=== PATIENT | female | born 1945 | race Caucasian/White ===

== ENCOUNTER 2016-09-21 17:41 | Inpatient (IN) | payer MEDICARE ==
[~2016-09-21] VITALS: Ht 160 cm; Wt 55.3 kg
[~2016-09-21 17:41] MED LIST: LISI2.5T PO; METO25TA35 PO; OXYM-22 NAS
[2016-09-21] MEDS ORDERED: SODIUM CHLORIDE FLUSH 10ML SYR IVF ONE (18:30)
[2016-09-21] MEDS ORDERED: ONDANSETRON 2MG/ML, 2ML IVPush ONE (18:30)
[2016-09-21] MEDS ORDERED: HYDROmorphone 1 MG/ML, 1ML IVPush PRN (18:30)
[2016-09-21 18:43] LABS: HEMOGLOBIN 14.8 g/dL (11.7-16.4)
[2016-09-21 18:53] LABS: BLOOD UREA NITROGEN 12 mg/dL (7-18)
[2016-09-21] MEDS ORDERED: HYDROmorphone 1 MG/ML, 1ML ONE (19:24)
[2016-09-21] MEDS ORDERED: ONDANSETRON 2MG/ML, 2ML ONE ×2 (19:25→21:23)
[2016-09-21] MEDS ORDERED: FENTANYL PF 250 MCG/5ML ONE (20:31)
[2016-09-21] MEDS ORDERED: MIDAZOLAM 1 MG/ML, 2ML ONE (20:31)
[2016-09-21] MEDS ORDERED: ONDANSETRON 2MG/ML, 2ML IVP PRN (21:00)
[2016-09-21] MEDS ORDERED: hydrALAzine 20 MG/ML, 1ML IV PRN (21:00)
[2016-09-21] MEDS ORDERED: METOCLOPRAMIDE 5 MG/ML, 2ML IV PRN (21:00)
[2016-09-21] MEDS ORDERED: MEPERIDINE/PF 25MG/0.5ML IVPush PRN (21:00)
[2016-09-21] MEDS ORDERED: PROMETHAZINE 25 MG/ML, 1ML IV PRN (21:00)
[2016-09-21] MEDS ORDERED: HYDROmorphone 2 MG/ML, 1ML IV PRN (21:00)
[2016-09-21] MEDS ORDERED: HYDROmorphone 1 MG/ML, 1ML IV PRN (21:00)
[2016-09-21] MEDS ORDERED: FENTANYL PF 100 MCG/2ML IV PRN (21:00)
[2016-09-21] MEDS: NICOTINE 14MG/24 HR PATCH.TD24 TD SCH (21:00)
[2016-09-21] MEDS: METOPROLOL TARTRATE 25 MG TABLET PO SCH (21:00)
[2016-09-21] MEDS ORDERED: ONDANSETRON 2MG/ML, 2ML IVPush PRN (21:00)
[2016-09-21] MEDS ORDERED: BISACODYL 10 MG SUPP PR PRN (21:00)
[2016-09-21] MEDS ORDERED: OXYcodone 5 MG/5 ML ORAL.SOL UDC PO PRN (21:00)
[2016-09-21] MEDS ORDERED: LABETALOL 5MG/ML, 20ML IV PRN ×2 (21:00)
[2016-09-21] MEDS ORDERED: NEOSPORIN OINT, 15GM ONE (21:21)
[2016-09-21] MEDS ORDERED: CEFAZOLIN 1,000 MG ONE (21:23)
[2016-09-21] MEDS ORDERED: ROCURONIUM 10 MG/ML ONE (21:23)
[2016-09-21] MEDS ORDERED: PROPOFOL 10 MG/ML, 20ML ONE (21:23)
[2016-09-21] MEDS ORDERED: GLYCOPYRROLATE 0.2MG/1ML ONE (21:23)
[2016-09-21] MEDS ORDERED: DEXAMETHASONE 4 MG/ML, 5ML ONE (21:23)
[2016-09-21] MEDS ORDERED: NEOSTIGMINE 1 MG/ML, 10ML ONE (21:23)
[2016-09-21] MEDS ORDERED: OXYcodone 5 MG/5 ML ORAL.SOL UDC ONE (23:02)
[2016-09-21 23:55] VITALS: BP 161/71
[2016-09-22] MEDS: CEFAZOLIN PMX 1GM/50ML 50 ML IVPB SCH ×2 (02:16→09:33)
[2016-09-22] MEDS: POTASSIUM CHLORIDE 20 MEQ in SODIUM CHLORIDE 0.9% 1,000 ML IV SCH ×2 (02:16→11:23)
[2016-09-22 04:00] VITALS: BP 145/70
[2016-09-22 05:39] LABS: HEMOGLOBIN 14.8 g/dL (11.7-16.4)
[2016-09-22 05:50] LABS: ASPARTATE AMINO TRANSFERASE 20 U/L (15-37); BLOOD UREA NITROGEN 12 mg/dL (7-18)
[2016-09-22] MEDS: ENOXAPARIN 40 MG/0.4 ML SQ SCH (06:02)
[2016-09-22 09:20] VITALS: BP 136/73
[2016-09-22] MEDS: METOPROLOL TARTRATE 25 MG TABLET PO SCH ×2 (09:33→21:20)
[2016-09-22] MEDS: LISINOPRIL 5 MG TABLET PO SCH (09:33)
[2016-09-22] MEDS ORDERED: ERGOCALCIFEROL 50,000 UNIT CAPSULE PO SCH (11:00)
[2016-09-22] MEDS ORDERED: POTASSIUM CHLORIDE 20 MEQ TAB.ER.PRT PO ONE (11:00)
[2016-09-22] MEDS ORDERED: OXYcodone IR 5MG TABLET PO PRN (11:00)
[2016-09-22] MEDS: ACETAMINOPHEN 500 MG TABLET PO SCH ×3 (11:21→21:21)
[2016-09-22 14:55] VITALS: BP 154/69
[2016-09-22 19:45] VITALS: BP 122/59
[2016-09-22] MEDS: NICOTINE 14MG/24 HR PATCH.TD24 TD SCH (21:21)
[2016-09-23 02:45] VITALS: BP 129/69
[2016-09-23 05:48] LABS: BLOOD UREA NITROGEN 11 mg/dL (7-18)
[2016-09-23] MEDS: ENOXAPARIN 40 MG/0.4 ML SQ SCH (05:57)
[2016-09-23] MEDS: ACETAMINOPHEN 500 MG TABLET PO SCH ×4 (05:57→21:50)
[2016-09-23 06:09] LABS: HEMOGLOBIN 12.4 g/dL (11.7-16.4)
[2016-09-23 09:28] VITALS: BP 177/75
[2016-09-23] MEDS: METOPROLOL TARTRATE 25 MG TABLET PO SCH ×2 (09:29→21:50)
[2016-09-23] MEDS: LISINOPRIL 5 MG TABLET PO SCH (09:30)
[2016-09-23 13:29] VITALS: BP 169/76
[2016-09-23 19:40] VITALS: BP 160/77
[2016-09-23] MEDS: NICOTINE 14MG/24 HR PATCH.TD24 TD SCH (21:50)
[2016-09-24 03:18] VITALS: BP 160/72
[2016-09-24 04:47] LABS: HEMOGLOBIN 12.8 g/dL (11.7-16.4)
[2016-09-24] MEDS: ACETAMINOPHEN 500 MG TABLET PO SCH ×4 (06:35→20:27)
[2016-09-24] MEDS: ENOXAPARIN 40 MG/0.4 ML SQ SCH (06:35)
[2016-09-24 07:05] VITALS: BP 160/77
[2016-09-24] MEDS: METOPROLOL TARTRATE 25 MG TABLET PO SCH ×2 (07:25→20:28)
[2016-09-24] MEDS: LISINOPRIL 5 MG TABLET PO SCH ×2 (07:26→08:03)
[2016-09-24 12:17] VITALS: BP 145/79
[2016-09-24] MEDS ORDERED: TEMAZEPAM 30 MG CAPSULE PO PRN (13:00)
[2016-09-24 20:02] VITALS: BP 177/74
[2016-09-24] MEDS: NICOTINE 14MG/24 HR PATCH.TD24 TD SCH (20:27)
[2016-09-24] MEDS: DOCUSATE 100 MG CAPSULE PO SCH (20:27)
[2016-09-25 02:35] VITALS: BP 133/77
[2016-09-25] MEDS: ACETAMINOPHEN 500 MG TABLET PO SCH ×2 (05:32→11:33)
[2016-09-25] MEDS: ENOXAPARIN 40 MG/0.4 ML SQ SCH (05:32)
[2016-09-25 07:58] VITALS: BP 153/72
[2016-09-25] MEDS: METOPROLOL TARTRATE 25 MG TABLET PO SCH (08:50)
[2016-09-25] MEDS: LISINOPRIL 5 MG TABLET PO SCH (08:51)
[2016-09-25] MEDS: DOCUSATE 100 MG CAPSULE PO SCH (08:51)
[2016-09-25] MEDS ORDERED: ERGO500017 PO (09:58)
[2016-09-25] MEDS ORDERED: TRAM50TA2 PO (09:58)
[2016-09-25 13:04] VITALS: BP 115/53
== END 2016-09-25 15:20 | disposition home health service (06) | DRG 481 ==
LOC: SUATTDRO 20:23 → ED 20:25 → EDIP 20:41 → 4NOR 23:45 → DCLOUNGE 09-25 15:12
PROC: 0T9B70Z Drainage of Bladder with Drainage Device, Via Natural or Artificial Opening (ICD-10-PCS; 2016-09-21)
PROC: 0QS604Z Reposition Right Upper Femur with Internal Fixation Device, Open Approach (ICD-10-PCS; principal; 2016-09-21 21:30)
DX: S72.144A Nondisplaced intertrochanteric fracture of right femur, initial encounter for closed fracture (principal); E87.1 Hypo-osmolality and hyponatremia; I11.9 Hypertensive heart disease without heart failure; E78.5 Hyperlipidemia, unspecified; E87.6 Hypokalemia; D72.829 Elevated white blood cell count, unspecified; F17.210 Nicotine dependence, cigarettes, uncomplicated; R73.9 Hyperglycemia, unspecified; E55.9 Vitamin D deficiency, unspecified; E16.2 Hypoglycemia, unspecified; E78.00 Pure hypercholesterolemia, unspecified; W18.30XA Fall on same level, unspecified, initial encounter; Y92.009 Unspecified place in unspecified non-institutional (private) residence as the place of occurrence of the external cause; Z90.710 Acquired absence of both cervix and uterus
CPT/HCPCS: 36415; 71010; 76000; 80048; 80053; 81003; 82040; 82306; 83735; 84100; 84439; 84443; 85025; 85610; 85730; 93005; 96374; 96375; C1713; J0690; J1100; J1170; J1650; J2250; J2405; J2704; J2710; J3010; J3480; J3490; J7030

== ENCOUNTER → 2018-12-19 | Outpatient (CLI) | payer MEDICARE ==
[~2018-12-19] MED LIST changes: +ERGO500017 PO; +TRAM50TA2 PO
== END | disposition home or self-care (01) ==
LOC: CFH 14:10
PROVIDERS: ATTEND Licensed Practical Nurse
DX: Z12.2 Encounter for screening for malignant neoplasm of respiratory organs (principal); J84.89 Other specified interstitial pulmonary diseases; I25.10 Atherosclerotic heart disease of native coronary artery without angina pectoris; M85.89 Other specified disorders of bone density and structure, multiple sites; N95.8 Other specified menopausal and perimenopausal disorders; F17.211 Nicotine dependence, cigarettes, in remission
CPT/HCPCS: 77080; G0297

== ENCOUNTER 2019-06-01 11:45 | Observation (INO) | payer MEDICARE ==
[~2019-06-01] VITALS: Ht 160 cm; Wt 76.2 kg
--- NOTE | 2019-06-01 11:50 | NUR ---
THIS IS A 74 Y/O FEMALE THAT WOKE UP TODAY NOT FEELING WELL. PT REPORTS THAT SHE WOKE UP MUCH LATER THAN NORMAL AND NOTICED HER VOICE WAS FUNNY. PT REPORTS HX OF HTN AND HYPERLIPIDEMIA. PT REPORTS THAT SHE WAS HAVING DIFFICULTY COORDINATING THINGS AT THIS TIME. PT CONNECTED TO ALL MONITORS AND CALL LIGHT IN REACH. AWAITING FURTHER ORDERS.
[2019-06-01] MEDS ORDERED: LABETALOL 5MG/ML, 20ML ONE (11:56)
[2019-06-01] MEDS ORDERED: SODIUM CHLORIDE 0.9% 1,000ML IVBOLUS ONE (12:00)
[2019-06-01] MEDS ORDERED: SODIUM CHLORIDE FLUSH 10ML SYR IVF ONE (12:00)
[2019-06-01] MEDS ORDERED: LABETALOL 5MG/ML, 20ML IVPush ONE (12:00)
--- NOTE | 2019-06-01 12:10 | NUR ---
PT MEDICATED PER EMAR.
[2019-06-01 12:19] LABS: BASOPHILS # (AUTO) 0.05 x10^3/uL (0-0.1); BASOPHILS % (AUTO) 0 % (0-1); EOSINOPHILS # (AUTO) 0.13 x10^3/uL (0-0.4); EOSINOPHILS % (AUTO) 1 % (1-7); LYMPHOCYTES # (AUTO) 2.25 x10^3/uL (1-3.4); LYMPHOCYTES % (AUTO) 20 % (22-44); MD NO; MEAN CORPUSCULAR HEMOGLOBIN 30.7 pg (27.0-34.8); MEAN CORPUSCULAR HGB CONC 32.9 g/dL (32.4-35.8); MEAN CORPUSCULAR VOLUME 93.1 fL (80-100); MONOCYTES # (AUTO) 0.72 x10^3/uL (0.2-0.8); MONOCYTES % (AUTO) 6 % (2-9); NEUTROPHILS # (AUTO) 8.13 x10^3/uL (1.8-6.8); NEUTROPHILS % (AUTO) 72 % (42-75); PLATELET COUNT 299 x10^3/uL (130-400); RED BLOOD COUNT 5.02 x10^6/uL (3.82-5.3); RED CELL DISTRIBUTION WIDTH 12.9 % (9.6-15.2)
[2019-06-01 12:26] LABS: INTERNATIONAL NORMALIZED RATIO 0.97 (0.93-1.1); PROTHROMBIN TIME 10.2 Seconds (9.6-11.5)
[2019-06-01 12:28] LABS: ANION GAP 8 mmol/L (5-15); CALCIUM 9.5 mg/dL (8.5-10.1); CHLORIDE 106 mmol/L (98-107); CREATININE 1.02 mg/dL (0.55-1.02)
[2019-06-01 12:29] LABS: ALANINE AMINOTRANSFERASE 25 U/L (12-78); ALBUMIN 3.6 g/dL (3.4-5.0)
[2019-06-01] MEDS ORDERED: PLEASE ENTER HEIGHT AND WEIGHT MC SCH (12:30)
[2019-06-01 12:31] LABS: ALKALINE PHOSPHATASE 117 U/L (45-117); BILIRUBIN,TOTAL 0.6 mg/dL (0.2-1.0); TOTAL PROTEIN 6.7 g/dL (6.4-8.2)
--- NOTE | 2019-06-01 12:40 | NUR ---
PT AMBULATED TO RESTROOM, STAND BY ASSIST.
--- NOTE | 2019-06-01 13:07 | NUR ---
PT UNABLE TO PROVIDE UA. PT REPORTS SHE HAD URGE BUT NO URINE PRODUCED.
--- NOTE | 2019-06-01 13:08 | NUR ---
PT BACK FROM CT.
[2019-06-01] MEDS ORDERED: OMNIPAQUE 350 MG/ML, 100ML BOTTLE ONE (13:16)
[2019-06-01] MEDS ORDERED: POTASSIUM CHLORIDE 20 MEQ TAB.ER.PRT PO ONE (13:30)
[2019-06-01] MEDS ORDERED: POTASSIUM CHLORIDE 20 MEQ TAB.ER.PRT ONE (13:47)
[2019-06-01] MEDS ORDERED: ASPIRIN 325 MG TABLET ONE (13:47)
[2019-06-01] MEDS ORDERED: ASPIRIN 81 MG TABLET CHEW PO ONE (14:00)
--- NOTE | 2019-06-01 14:09 | NUR ---
PT MEDICATED PER EMAR AND PROVIDED WITH MEAL TRAY.
--- NOTE | 2019-06-01 14:23 | NUR ---
dr nuno spoke with dr mazariegos
--- NOTE | 2019-06-01 14:29 | NUR ---
PT GIVEN MEAL TRAY. PT A/OX4 AND VSS.
--- NOTE | 2019-06-01 14:57 | NUR ---
REPORT TO ANIKA LOPEZ, JULIO RN GURU INFORMED OF PTS HTN AND MEDICATIONS GIVEN ON ARRIVAL.
[2019-06-01 15:30] VITALS: BP 176/76
[2019-06-01] MEDS ORDERED: DOCUSATE 100 MG CAPSULE PO PRN (15:30)
[2019-06-01] MEDS ORDERED: NICOTINE 14MG/24 HR PATCH.TD24 TD SCH (15:30)
[2019-06-01] MEDS ORDERED: ACETAMINOPHEN 325 MG TABLET PO PRN (15:30)
[2019-06-01] MEDS ORDERED: ONDANSETRON 2MG/ML, 2ML IVPush PRN (15:30)
[2019-06-01] MEDS ORDERED: HEPARIN 5,000 UNITS/ML, 1ML SQ SCH (15:30)
[2019-06-01] MEDS ORDERED: ONDANSETRON ODT 4 MG PO PRN (15:30)
[2019-06-01] MEDS ORDERED: CLOPIDOGREL 300 MG TABLET PO ONE (16:00)
[2019-06-01 16:41] VITALS: BP 176/76
[2019-06-01 17:05] VITALS: BP 176/86
[2019-06-01 18:59] VITALS: BP 156/82
[2019-06-02 01:02] VITALS: BP 162/78
[2019-06-02 05:50] LABS: ANION GAP 5 mmol/L (5-15); BASOPHILS # (AUTO) 0.05 x10^3/uL (0-0.1); BASOPHILS % (AUTO) 1 % (0-1); CALCIUM 9.2 mg/dL (8.5-10.1); CHLORIDE 108 mmol/L (98-107); EOSINOPHILS % (AUTO) 2 % (1-7); LYMPHOCYTES # (AUTO) 2.92 x10^3/uL (1-3.4); LYMPHOCYTES % (AUTO) 34 % (22-44); MD NO; MEAN CORPUSCULAR HEMOGLOBIN 31.1 pg (27.0-34.8); MEAN CORPUSCULAR HGB CONC 33.1 g/dL (32.4-35.8); MEAN CORPUSCULAR VOLUME 93.8 fL (80-100); MEAN PLATELET VOLUME 9.3 fL (7.4-10.4); MONOCYTES # (AUTO) 0.75 x10^3/uL (0.2-0.8); MONOCYTES % (AUTO) 9 % (2-9); NEUTROPHILS # (AUTO) 4.78 x10^3/uL (1.8-6.8); NEUTROPHILS % (AUTO) 55 % (42-75); PLATELET COUNT 275 x10^3/uL (130-400); RED BLOOD COUNT 4.71 x10^6/uL (3.82-5.3); RED CELL DISTRIBUTION WIDTH 13.2 % (9.6-15.2)
[2019-06-02] MEDS ORDERED: ASPIRIN 325 MG TABLET PO SCH (06:00)
[2019-06-02 06:03] LABS: CREATININE 0.93 mg/dL (0.55-1.02)
[2019-06-02 06:54] VITALS: BP 157/72
[2019-06-02] MEDS ORDERED: CLOPIDOGREL 75 MG TABLET PO SCH (09:00)
[2019-06-02 11:21] VITALS: BP 168/83
[2019-06-02 14:35] VITALS: BP 169/81
[2019-06-02] MEDS ORDERED: CLOP75TA PO (15:36)
[2019-06-02] MEDS ORDERED: LISI-167 PO (15:36)
[2019-06-02] MEDS ORDERED: ASPI325T17 PO (15:36)
== END 2019-06-02 16:35 | disposition home or self-care (01) ==
LOC: ED 12:01 → EDIP 13:45 → INTOOBSV 13:45 → 4WST 15:48 → DCLOUNGE 06-02 16:20
PROVIDERS: ADMIT Internal Medicine; ATTEND Internal Medicine
DX: R47.01 Aphasia (principal); I65.23 Occlusion and stenosis of bilateral carotid arteries; E78.5 Hyperlipidemia, unspecified; F17.200 Nicotine dependence, unspecified, uncomplicated; E78.00 Pure hypercholesterolemia, unspecified; I99.8 Other disorder of circulatory system; I11.9 Hypertensive heart disease without heart failure; I25.10 Atherosclerotic heart disease of native coronary artery without angina pectoris; Z90.710 Acquired absence of both cervix and uterus; Z88.0 Allergy status to penicillin; Z88.2 Allergy status to sulfonamides; Z79.82 Long term (current) use of aspirin; Z79.02 Long term (current) use of antithrombotics/antiplatelets
CPT/HCPCS: 36415; 70450; 70496; 70498; 70551; 80048; 80053; 83735; 84443; 85025; 85610; 93005; 93306; 96374; 97161; 97165; 99284; G0378; J7030; Q9967

== ENCOUNTER 2019-08-01 17:33 | Inpatient (IN) | payer MEDICARE ==
[~2019-08-01] VITALS: Ht 170.2 cm; Wt 98.1 kg
[~2019-08-01 17:33] MED LIST changes: +ASPI325T17 PO; +CLOP75TA PO; +LISI-167 PO; +VIT1CAPS42 PO
[2019-08-01] MEDS ORDERED: FENTANYL PF 100 MCG/2ML ONE (17:40)
[2019-08-01] MEDS ORDERED: MIDAZOLAM 1 MG/ML, 5ML ONE (17:40)
[2019-08-01] MEDS ORDERED: NITROGLYCERIN 5 MG/ML, 10ML ONE (17:41)
[2019-08-01] MEDS ORDERED: LIDOCAINE 2%, 20ML ONE (17:41)
[2019-08-01] MEDS ORDERED: NITROGLYCERIN OINT 2%, 1GM TP ONE ×2 (17:41→21:00)
[2019-08-01] MEDS ORDERED: BIVALIRUDIN 250 MG ONE (17:41)
[2019-08-01] MEDS: METOPROLOL 1 MG/ML, 5ML IVPush PRN ×2 (17:45→17:55)
--- NOTE | 2019-08-01 17:45 | NUR ---
Late entry: code cardiac called for possible STEMI. EKG done immediately at time of arrival, Dr. Simmons @ BS when pt arrived, reviewed EKG & code cardiac canceled. Pt reports she has no CP at this time but experiences an occasional "twinge" in her chest. States she had an onset of slurred speech at 1650 witnessed by her catshovel driver. 911 called, and STEMI alert called in report based on EKG done in field. At this time pt is A&Ox4, speech clear, pain free. Hypertensive and 1" ntg paste & 1st dose of metoprolol 5mg IV administered. Cardiac, NIBP & SPO2 monitors IP.
--- NOTE | 2019-08-01 18:05 | NUR ---
173/74, 58 after 2nd dose of metoprolol. Remains pain free, no neuro deficits.
[2019-08-01 18:07] LABS: BASOPHILS # (AUTO) 0.05 x10^3/uL (0-0.1); BASOPHILS % (AUTO) 1 % (0-1); EOSINOPHILS # (AUTO) 0.16 x10^3/uL (0-0.4); EOSINOPHILS % (AUTO) 2 % (1-7); LYMPHOCYTES # (AUTO) 2.64 x10^3/uL (1-3.4); LYMPHOCYTES % (AUTO) 30 % (22-44); MD NO; MEAN CORPUSCULAR HEMOGLOBIN 31.1 pg (27.0-34.8); MEAN CORPUSCULAR HGB CONC 33.6 g/dL (32.4-35.8); MEAN CORPUSCULAR VOLUME 92.6 fL (80-100); MONOCYTES # (AUTO) 0.76 x10^3/uL (0.2-0.8); MONOCYTES % (AUTO) 9 % (2-9); NEUTROPHILS # (AUTO) 5.19 x10^3/uL (1.8-6.8); NEUTROPHILS % (AUTO) 59 % (42-75); PLATELET COUNT 304 x10^3/uL (130-400); RED BLOOD COUNT 5.04 x10^6/uL (3.82-5.3); RED CELL DISTRIBUTION WIDTH 13.4 % (9.6-15.2)
--- NOTE | 2019-08-01 18:12 | NUR ---
To radiology for CT head.
[2019-08-01 18:14] LABS: INTERNATIONAL NORMALIZED RATIO 0.89 (0.93-1.1); PROTHROMBIN TIME 9.4 Seconds (9.6-11.5)
[2019-08-01] MEDS ORDERED: METOPROLOL 1 MG/ML, 5ML ONE (18:17)
[2019-08-01 18:20] LABS: ALANINE AMINOTRANSFERASE 23 U/L (12-78); ALBUMIN 4.2 g/dL (3.4-5.0); ANION GAP 6 mmol/L (5-15); CALCIUM 9.9 mg/dL (8.5-10.1); CHLORIDE 103 mmol/L (98-107)
[2019-08-01 18:25] LABS: ALKALINE PHOSPHATASE 121 U/L (45-117); BILIRUBIN,TOTAL 0.5 mg/dL (0.2-1.0); TOTAL PROTEIN 7.6 g/dL (6.4-8.2); TROPONIN I < 0.015 ng/mL (0.000-0.045)
--- NOTE | 2019-08-01 18:45 | NUR ---
tb card/tele admit. No change in neuro assessment, no CP.
--- NOTE | 2019-08-01 18:51 | NUR ---
REPORT RECEIVED FROM YESI LOPEZ. ASSUMING CARE AT THIS TIME.
--- NOTE | 2019-08-01 18:57 | NUR ---
Break RN: Patient resting in [facility] with no complaints. Awaiting CT results.
--- NOTE | 2019-08-01 19:57 | NUR ---
PT RESTING COMFORTABLY ON GURNEY. NADN. WAITING ADMIT BED UPSTAIRS. CONNECTED TO MONITORING.
--- NOTE | 2019-08-01 20:37 | NUR ---
REPORT GIVEN TO ADIN LOPEZ
[2019-08-01 20:55] VITALS: BP 196/80
[2019-08-01] MEDS ORDERED: ACETAMINOPHEN 650 MG/20.3 ML UDC PO PRN (23:30)
[2019-08-01] MEDS ORDERED: ONDANSETRON 2MG/ML, 2ML IVPush PRN (23:30)
[2019-08-01] MEDS ORDERED: LABETALOL 5MG/ML, 20ML IV PRN (23:30)
[2019-08-01 23:50] VITALS: BP 125/67
[2019-08-01] MEDS: NICOTINE 7 MG/24 HR PATCH.TD24 TD SCH (23:52)
[2019-08-01] MEDS: AMLODIPINE 2.5 MG TABLET PO SCH (23:53)
[2019-08-01] MEDS: HEPARIN 5,000 UNITS/ML, 1ML SQ SCH (23:53)
[2019-08-01 23:57] LABS: TROPONIN I < 0.015 ng/mL (0.000-0.045)
[2019-08-02] VITALS (10 sets, daily range): BP systolic 97–190; BP diastolic 62–94
[2019-08-02] MEDS ORDERED: SODIUM CHLORIDE 0.9%, 500ML IVBOLUS ONE (03:00)
[2019-08-02 05:11] LABS: ANION GAP 5 mmol/L (5-15); CHLORIDE 107 mmol/L (98-107); CHOLESTEROL, TOTAL 163 mg/dL (140-239); CREATININE 1.11 mg/dL (0.55-1.02); TRIGLYCERIDES 213 mg/dL (50-200); VLDL CHOLESTEROL 43 mg/dL (0-25)
[2019-08-02 05:14] LABS: CHOL/HDL RATIO 3.5; HDL CHOL % 29 % (28-40); HDL CHOLESTEROL (DIRECT) 47 mg/dL (40-60); LDL CHOLESTEROL,CALCULATED 73 mg/dL (54-169); LDL/HDL RATIO 1.6 (0.5-3.0); TROPONIN I < 0.015 ng/mL (0.000-0.045)
[2019-08-02] MEDS ORDERED: ASPIRIN 325 MG TABLET PO SCH (06:00)
[2019-08-02] MEDS ORDERED: REGADENOSON 0.4 MG/5 ML SYRINGE ONE (08:37)
[2019-08-02] MEDS ORDERED: ACETAMINOPHEN 650 MG/20.3 ML UDC PO PRN (09:00)
[2019-08-02] MEDS ORDERED: POTASSIUM CHLORIDE 20 MEQ TAB.ER.PRT PO ONE (09:00)
[2019-08-02] MEDS: HEPARIN 5,000 UNITS/ML, 1ML SQ SCH ×2 (09:08→16:46)
[2019-08-02] MEDS: CLOPIDOGREL 75 MG TABLET PO SCH (12:38)
[2019-08-02] MEDS: LISINOPRIL 10 MG TABLET PO SCH (12:38)
--- NOTE | 2019-08-02 15:23 | NUR ---
REC: Reg/thin liquids; no orange sheet indicated Addendum: 08/02/19 at 1523 by Joselyn NIXON Amended: Links added.
[2019-08-02] MEDS ORDERED: ATORVASTATIN 40 MG TABLET PO SCH (21:00)
[2019-08-02] MEDS ORDERED: ATORVASTATIN 20 MG TABLET PO SCH (21:00)
[2019-08-02] MEDS: AMLODIPINE 2.5 MG TABLET PO SCH (21:16)
[2019-08-02] MEDS: NICOTINE 7 MG/24 HR PATCH.TD24 TD SCH (23:03)
[2019-08-03] MEDS: HEPARIN 5,000 UNITS/ML, 1ML SQ SCH ×2 (01:25→10:09)
[2019-08-03 01:31] VITALS: BP 135/80
[2019-08-03 02:23] VITALS: BP 122/80
[2019-08-03] MEDS ORDERED: ASPIRIN 81 MG TABLET CHEW PO SCH (06:00)
[2019-08-03 06:12] VITALS: BP 164/73
[2019-08-03 06:38] LABS: ANION GAP 6 mmol/L (5-15); CALCIUM 9.3 mg/dL (8.5-10.1); CHLORIDE 109 mmol/L (98-107); CREATININE 1.08 mg/dL (0.55-1.02)
[2019-08-03 06:43] VITALS: BP 168/88
[2019-08-03] MEDS ORDERED: NICO-485 TD (09:44)
[2019-08-03] MEDS ORDERED: ATOR40TA78 PO (09:44)
[2019-08-03] MEDS ORDERED: AMLO2.5T5 PO (09:44)
[2019-08-03] MEDS: CLOPIDOGREL 75 MG TABLET PO SCH (10:08)
[2019-08-03] MEDS: LISINOPRIL 10 MG TABLET PO SCH (10:08)
[2019-08-03 10:16] VITALS: BP 177/83
== END 2019-08-03 12:39 | disposition home or self-care (01) | DRG 65 ==
LOC: ED 18:29 → EDIP 19:59 → 4EST 20:50 → DCLOUNGE 08-03 12:13
PROVIDERS: ADMIT Family Medicine; ATTEND Family Medicine
DX: I63.9 Cerebral infarction, unspecified (principal); I16.1 Hypertensive emergency; R47.01 Aphasia; E78.00 Pure hypercholesterolemia, unspecified; E78.1 Pure hyperglyceridemia; E78.5 Hyperlipidemia, unspecified; E87.6 Hypokalemia; F17.210 Nicotine dependence, cigarettes, uncomplicated; G47.00 Insomnia, unspecified; H91.10 Presbycusis, unspecified ear; I10 Essential (primary) hypertension; I25.10 Atherosclerotic heart disease of native coronary artery without angina pectoris; Z90.711 Acquired absence of uterus with remaining cervical stump; Z88.0 Allergy status to penicillin; Z88.2 Allergy status to sulfonamides; Z88.8 Allergy status to other drugs, medicaments and biological substances; Z71.6 Tobacco abuse counseling
CPT/HCPCS: 36415; 70450; 70551; 71045; 78452; 80047; 80048; 80053; 80061; 83605; 84484; 85025; 85610; 93005; 93017; 96374; G0378; J0583; J1644; J2250; J2785; J3010; A9502; C9898; J7040

== ENCOUNTER 2019-12-15 18:04 | Observation (INO) | payer MEDICARE, MEDICAID ==
[~2019-12-15] VITALS: Ht 160 cm; Wt 77.9 kg
[~2019-12-15 18:04] MED LIST changes: +AMLO2.5T5 PO; +ATOR40TA78 PO; +NICO-485 TD
--- NOTE | 2019-12-15 18:34 | NUR ---
PT IN HOSPITAL GOWN. PT ON VITALS AND CARDIAC MONITORS. CALL LIGHT WITHIN REACH. PT RESTING IN BED AWAITING ERP EVAL. WILL CONTINUE TO MONITOR.
[2019-12-15] MEDS ORDERED: SODIUM CHLORIDE FLUSH 10ML SYR IVF ONE (19:00)
--- NOTE | 2019-12-15 19:09 | NUR ---
ASSUMED CARE OF PT AT THIS TIME. PT RESTING WITH NO CONCERNS. EKG COMPLETE.
[2019-12-15 19:31] LABS: INTERNATIONAL NORMALIZED RATIO 0.93 (0.93-1.1); PROTHROMBIN TIME 9.8 Seconds (9.6-11.5)
[2019-12-15 19:32] LABS: ALBUMIN 4.1 g/dL (3.4-5.0); ANION GAP 8 mmol/L (5-15); CALCIUM 9.5 mg/dL (8.5-10.1); CHLORIDE 98 mmol/L (98-107); CREATININE 1.34 mg/dL (0.55-1.02)
[2019-12-15 19:34] LABS: BASOPHILS # (AUTO) 0.04 x10^3/uL (0-0.1); BASOPHILS % (AUTO) 0 % (0-1); EOSINOPHILS # (AUTO) 0.01 x10^3/uL (0-0.4); EOSINOPHILS % (AUTO) 0 % (1-7); LYMPHOCYTES # (AUTO) 1.65 x10^3/uL (1-3.4); LYMPHOCYTES % (AUTO) 14 % (22-44); MD NO; MEAN CORPUSCULAR HEMOGLOBIN 30.9 pg (27.0-34.8); MEAN CORPUSCULAR HGB CONC 34.2 g/dL (32.4-35.8); MEAN CORPUSCULAR VOLUME 90.4 fL (80-100); MEAN PLATELET VOLUME 8.9 fL (7.4-10.4); MONOCYTES # (AUTO) 0.85 x10^3/uL (0.2-0.8); MONOCYTES % (AUTO) 7 % (2-9); NEUTROPHILS # (AUTO) 9.27 x10^3/uL (1.8-6.8); NEUTROPHILS % (AUTO) 78 % (42-75); PLATELET COUNT 356 x10^3/uL (130-400); RED BLOOD COUNT 4.84 x10^6/uL (3.82-5.3); RED CELL DISTRIBUTION WIDTH 13.3 % (9.6-15.2)
--- NOTE | 2019-12-15 19:36 | NUR ---
PT TO AND FROM CT.
--- NOTE | 2019-12-15 20:43 | NUR ---
PT AGREEABLE TO PLAN OF CARE OF ADMISSION. AWAITING BED PLACEMENT. PT DOES NOT HAVE MED LIST WITH HER AND IS UNSURE WHAT MEDICATION AND DOSAGES SHE TAKES.
[2019-12-15] MEDS ORDERED: SODIUM CHLORIDE FLUSH 10ML SYR IVF PRN (21:00)
[2019-12-15] MEDS ORDERED: ASPIRIN 81 MG TABLET CHEW PO ONE (21:00)
--- NOTE | 2019-12-15 21:09 | NUR ---
REPORT GIVEN TO MINNA LOPEZ.
[2019-12-15] MEDS ORDERED: ASPIRIN 81 MG TABLET CHEW ONE (21:14)
--- NOTE | 2019-12-15 21:32 | NUR ---
NEW IV STARTED IN CT PER [employer] F[employer]ICATOR. PT GIVEN ASPIRIN PRIOR TO TRANSPORT TO FLOOR.
[2019-12-15] MEDS ORDERED: OMNIPAQUE 350 MG/ML, 100ML BOTTLE ONE (21:42)
[2019-12-15 22:25] VITALS: BP 174/84
[2019-12-15] MEDS: ATORVASTATIN 80 MG TABLET PO SCH (23:53)
[2019-12-16] MEDS ORDERED: hydrALAzine 20 MG/ML, 1ML IVPush PRN
[2019-12-16] MEDS ORDERED: POTASSIUM CHLORIDE 20 MEQ TAB.ER.PRT PO ONE
[2019-12-16 00:11] VITALS: BP 152/68
[2019-12-16 00:28] LABS: MICROSCOPIC NOT IND
[2019-12-16 01:32] LABS: TROPONIN I 0.548 ng/mL (0.000-0.045)
[2019-12-16 06:08] LABS: BASOPHILS # (AUTO) 0.08 x10^3/uL (0-0.1); BASOPHILS % (AUTO) 1 % (0-1); EOSINOPHILS # (AUTO) 0.18 x10^3/uL (0-0.4); EOSINOPHILS % (AUTO) 2 % (1-7); LYMPHOCYTES # (AUTO) 2.53 x10^3/uL (1-3.4); LYMPHOCYTES % (AUTO) 27 % (22-44); MD NO; MEAN CORPUSCULAR HEMOGLOBIN 30.7 pg (27.0-34.8); MEAN CORPUSCULAR HGB CONC 33.5 g/dL (32.4-35.8); MEAN CORPUSCULAR VOLUME 91.5 fL (80-100); MEAN PLATELET VOLUME 8.9 fL (7.4-10.4); MONOCYTES % (AUTO) 10 % (2-9); NEUTROPHILS # (AUTO) 5.66 x10^3/uL (1.8-6.8); NEUTROPHILS % (AUTO) 61 % (42-75); PLATELET COUNT 343 x10^3/uL (130-400); RED BLOOD COUNT 4.53 x10^6/uL (3.82-5.3); RED CELL DISTRIBUTION WIDTH 13.1 % (9.6-15.2)
[2019-12-16 06:20] LABS: ANION GAP 5 mmol/L (5-15); CALCIUM 9.1 mg/dL (8.5-10.1); CHLORIDE 98 mmol/L (98-107); CHOLESTEROL, TOTAL 154 mg/dL (140-239); CREATININE 1.32 mg/dL (0.55-1.02); TRIGLYCERIDES 112 mg/dL (50-200); VLDL CHOLESTEROL 22 mg/dL (0-25)
[2019-12-16 06:24] LABS: CHOL/HDL RATIO 3.3; HDL CHOL % 30 % (28-40); HDL CHOLESTEROL (DIRECT) 46 mg/dL (40-60); LDL CHOLESTEROL,CALCULATED 86 mg/dL (54-169); LDL/HDL RATIO 1.9 (0.5-3.0); TROPONIN I 0.694 ng/mL (0.000-0.045)
[2019-12-16] MEDS: ASPIRIN 325 MG TABLET PO SCH (08:11)
[2019-12-16] MEDS: LISINOPRIL 10 MG TABLET PO SCH (08:11)
[2019-12-16] MEDS: CLOPIDOGREL 75 MG TABLET PO SCH (08:11)
[2019-12-16 08:23] VITALS: BP 146/78
[2019-12-16] MEDS: NICOTINE 7 MG/24 HR PATCH.TD24 TD SCH (10:56)
[2019-12-16] MEDS ORDERED: SODIUM CHLORIDE 0.9% 1,000ML IVBOLUS ONE (12:00)
[2019-12-16 15:41] VITALS: BP 147/74
[2019-12-16 20:13] VITALS: BP 145/75
[2019-12-16] MEDS: ATORVASTATIN 80 MG TABLET PO SCH (20:26)
[2019-12-16] MEDS ORDERED: AMLODIPINE 2.5 MG TABLET PO SCH (21:00)
[2019-12-17 00:33] VITALS: BP 136/76
[2019-12-17 06:03] LABS: ALBUMIN 3.3 g/dL (3.4-5.0); ANION GAP 4 mmol/L (5-15); CHLORIDE 105 mmol/L (98-107); CREATININE 1.15 mg/dL (0.55-1.02)
[2019-12-17 06:08] LABS: BASOPHILS # (AUTO) 0.05 x10^3/uL (0-0.1); BASOPHILS % (AUTO) 1 % (0-1); EOSINOPHILS % (AUTO) 1 % (1-7); LYMPHOCYTES # (AUTO) 1.93 x10^3/uL (1-3.4); LYMPHOCYTES % (AUTO) 27 % (22-44); MD NO; MEAN CORPUSCULAR HEMOGLOBIN 30.8 pg (27.0-34.8); MEAN CORPUSCULAR HGB CONC 33.6 g/dL (32.4-35.8); MEAN CORPUSCULAR VOLUME 91.6 fL (80-100); MEAN PLATELET VOLUME 8.8 fL (7.4-10.4); MONOCYTES # (AUTO) 0.63 x10^3/uL (0.2-0.8); MONOCYTES % (AUTO) 9 % (2-9); NEUTROPHILS # (AUTO) 4.53 x10^3/uL (1.8-6.8); NEUTROPHILS % (AUTO) 63 % (42-75); PLATELET COUNT 342 x10^3/uL (130-400); RED BLOOD COUNT 4.49 x10^6/uL (3.82-5.3); RED CELL DISTRIBUTION WIDTH 13.3 % (9.6-15.2)
[2019-12-17 06:44] VITALS: BP 127/69
[2019-12-17] MEDS: CLOPIDOGREL 75 MG TABLET PO SCH (08:23)
[2019-12-17] MEDS: ASPIRIN 325 MG TABLET PO SCH (08:23)
[2019-12-17] MEDS: LISINOPRIL 10 MG TABLET PO SCH (08:24)
[2019-12-17] MEDS: NICOTINE 7 MG/24 HR PATCH.TD24 TD SCH (11:28)
[2019-12-17 12:57] VITALS: BP 169/81
[2019-12-17] MEDS ORDERED: ASPI325T17 PO (13:56)
== END 2019-12-17 15:04 | disposition home or self-care (01) ==
LOC: ED 21:12 → EDIP 21:55 → INTOOBSV 21:55 → 4WST 21:56 → DCLOUNGE 12-17 14:40
PROVIDERS: ADMIT Family Medicine; ATTEND Family Medicine
DX: I21.4 Non-ST elevation (NSTEMI) myocardial infarction (principal); I63.9 Cerebral infarction, unspecified; R53.1 Weakness; I10 Essential (primary) hypertension; E78.5 Hyperlipidemia, unspecified; H35.30 Unspecified macular degeneration; I65.29 Occlusion and stenosis of unspecified carotid artery; R42 Dizziness and giddiness; E78.00 Pure hypercholesterolemia, unspecified; G51.0 Bell's palsy; F17.200 Nicotine dependence, unspecified, uncomplicated; Z86.73 Personal history of transient ischemic attack (TIA), and cerebral infarction without residual deficits; Z88.0 Allergy status to penicillin; Z79.899 Other long term (current) drug therapy; Z79.82 Long term (current) use of aspirin; Z90.710 Acquired absence of both cervix and uterus
CPT/HCPCS: 36415; 70450; 70496; 70498; 70551; 80048; 80061; 80069; 81003; 82040; 83735; 84443; 84484; 85025; 85610; 85730; 93005; 97162; 97165; 99285; G0378; J7030; Q9967

== ENCOUNTER → 2020-01-05 | Outpatient (CLI) | payer MEDICARE, MEDICAID | END | disposition home or self-care (01) | LOC: CARD 09:51 | PROVIDERS: ATTEND Nurse Practitioner Family | DX: I21.4 Non-ST elevation (NSTEMI) myocardial infarction (principal); G45.9 Transient cerebral ischemic attack, unspecified | CPT/HCPCS: 93225; 93226 ==

== ENCOUNTER 2020-02-13 11:56 | Outpatient (CLI) | payer MEDICARE, MEDICAID | END 2020-02-13 23:59 | disposition home or self-care (01) | LOC: CFH 11:56 | PROVIDERS: ATTEND Internal Medicine Cardiovascular Disease | DX: I35.8 Other nonrheumatic aortic valve disorders (principal); I10 Essential (primary) hypertension; G45.9 Transient cerebral ischemic attack, unspecified | CPT/HCPCS: 93306 ==

== ENCOUNTER 2021-02-27 16:05 | Emergency (ER) | payer MEDICARE, MEDICAID ==
[~2021-02-27] VITALS: Ht 160 cm; Wt 75.0 kg
[~2021-02-27 16:05] MED LIST changes: -LISI2.5T PO; +LISI2.5T12 PO
--- NOTE | 2021-02-27 16:29 | NUR ---
CC OF LEFT FLANK PAIN SINCE YESTERDAY AND MIDDLE BACK PAIN. PT WITH RECENT BACK INJURY MOVING BOXES AND HAS BEEN GOING TO PT. PT REPORT INJURY WAS ON RIGHT SIDE. PT DENIES URINARY SYMPTOMS. HX BACK SURGERY, AND ARTHRITIS. PT RECEIVED 100 MCG FENTANYL EN ROUTE FROM EMS, STATES IT DECREASED PAIN FROM 8/10 TO 6/10.
[2021-02-27] MEDS ORDERED: ACETAMINOPHEN 500 MG TABLET PO ONE (17:30)
[2021-02-27 17:34] LABS: BASOPHILS % (AUTO) 1 % (0-1); EOSINOPHILS % (AUTO) 2 % (1-7); LYMPHOCYTES % (AUTO) 24 % (22-44); MEAN CORPUSCULAR HEMOGLOBIN 30.4 pg (27.0-34.8); MEAN CORPUSCULAR HGB CONC 34.2 g/dL (32.4-35.8); MEAN PLATELET VOLUME 8.8 fL (7.4-10.4); MONOCYTES % (AUTO) 8 % (2-9); NEUTROPHILS % (AUTO) 66 % (42-75); PLATELET COUNT 317 x10^3/uL (130-400); RED CELL DISTRIBUTION WIDTH 13.6 % (9.6-15.2)
--- NOTE | 2021-02-27 17:36 | NUR ---
PT TO CT
[2021-02-27 17:44] LABS: ALANINE AMINOTRANSFERASE 27 U/L (12-78); ALBUMIN 3.6 g/dL (3.4-5.0); ANION GAP 4 mmol/L (5-15); CALCIUM 9.9 mg/dL (8.5-10.1); CHLORIDE 99 mmol/L (98-107); CREATININE 0.94 mg/dL (0.55-1.02)
[2021-02-27 17:47] LABS: ALKALINE PHOSPHATASE 129 U/L (45-117); BILIRUBIN,TOTAL 0.5 mg/dL (0.2-1.0); TOTAL PROTEIN 7.2 g/dL (6.4-8.2)
[2021-02-27] MEDS ORDERED: ACETAMINOPHEN 500 MG TABLET ONE (18:07)
[2021-02-27] MEDS ORDERED: LISINOPRIL 20 MG TABLET ONE (18:25)
[2021-02-27] MEDS ORDERED: LISINOPRIL 20 MG TABLET PO ONE (18:30)
[2021-02-27 18:43] LABS: MICROSCOPIC NOT IND
[2021-02-27 19:30] VITALS: BP 200/88
== END 2021-02-27 19:57 | disposition home or self-care (01) ==
LOC: ED 16:15
DX: S39.012A Strain of muscle, fascia and tendon of lower back, initial encounter (principal); I10 Essential (primary) hypertension; E11.9 Type 2 diabetes mellitus without complications; F17.200 Nicotine dependence, unspecified, uncomplicated; X58.XXXA Exposure to other specified factors, initial encounter; Y93.89 Activity, other specified; Y92.89 Other specified places as the place of occurrence of the external cause; Y99.8 Other external cause status
CPT/HCPCS: 36415; 74176; 80053; 81003; 83690; 85025; 99284